=== PATIENT | male | born 1965 | race African-American/Black ===

== ENCOUNTER → 2017-03-10 15:34 | Outpatient (CLI) | payer OTHER ==
[2016-04-18 03:01] VITALS: BMI 30.6
[~2017-03-10 15:34] MED LIST: ASPIRIN81 MG PO; LIPITOR20 MG PO
== END | disposition home or self-care (01) ==
LOC: D.US 02-22 11:00
DX: N18.9 Chronic kidney disease, unspecified (principal); R10.9 Unspecified abdominal pain

== ENCOUNTER 2017-08-05 19:57 | Emergency (ER) | payer BC ==
[2016-04-18 03:01] VITALS: BMI 30.6
[2017-08-05 20:39] LABS: APPEARANCE CLEAR (CLEAR); BASOPHILS 0.3 % (0-2); BILIRUBIN NEGATIVE (NEGATIVE); COLOR STRAW (YELLOW); EOSINOPHILS 1.9 % (0-7); GLUCOSE NEGATIVE (NEGATIVE); HEMATOCRIT 41.8 % (42.0-54.0); IMMATURE GRANULOCYTES 0.3 % (0-5); KETONE NEGATIVE (NEGATIVE); LYMPHOCYTES 49.3 % (15-50); MCH 31.1 pg (26.0-34.0); MCHC 35.9 g/dL (31.0-37.0); MCV 86.5 fL (80.0-100.0); MEAN PLATELET VOLUME 10.1 fL (7.4-10.4); MONOCYTES 7.2 % (2-11); NITRITE NEGATIVE (NEGATIVE); PH 5.5 (5.0-6.0); PLATELET COUNT 202 10x3/uL (130-400); PROTEIN NEGATIVE (NEGATIVE); RBC 4.83 10x6/uL (4.20-6.10); RDW 12.5 % (11.5-14.5); SPECIFIC GRAVITY 1.005 (1.005-1.020); UROBILINOGEN NORMAL (NORMAL); WBC 3.8 10x3/uL (4.8-10.8)
[2017-08-05 21:02] LABS: ALBUMIN 3.9 g/dL (3.4-5.0); ANION GAP 14.2 mmol/L (8-16); BILIRUBIN - TOTAL 0.5 mg/dL (0.2-1.3); CALCIUM 9.1 mg/dL (8.5-10.1); CARBON DIOXIDE 26.4 mmol/L (21.0-32.0); CREATININE - SERUM 1.4 mg/dL (0.6-1.3); POTASSIUM - SERUM 3.6 mmol/L (3.5-5.1); PROTEIN - SERUM 7.5 g/dL (6.4-8.2)
[2017-08-05 21:43] LABS: AMYLASE - SERUM 48 U/L (25-115); LIPASE 72 U/L (73-393)
[2017-09-19] MEDS ORDERED: FLOMAX0.4 MG PO (17:48)
== END 2017-08-05 23:01 | disposition home or self-care (01) ==
LOC: D.ER 19:57
PROVIDERS: Emergency Medicine; Nurse Practitioner Family
DX: R10.9 Unspecified abdominal pain (principal)

== ENCOUNTER 2017-09-21 06:30 | Day surgery (SDC) | payer BC ==
[~2017-09-21] VITALS: Ht 190.5 cm; Wt 114.3 kg
--- NOTE | ~2017-09-21 | OP ---
PATIENT NAME: RADHA OLIVER MEDICAL RECORD: [id number] :63 LOCATION:D.FORMERLY [facility] ADMISSION DATE: SURGEON: CRISTO AGUILAR MD DATE OF OPERATION: 09/21/2017 SURGEON: Cristo Aguilar MD ANESTHESIA: General anesthesia by Dr. David Young. PREOPERATIVE DIAGNOSIS: A 6-mm left renal stone as seen on CT. PROCEDURE: Cystoscopy, left retrograde pyelogram. FINDINGS: No radiodense stones seen. No hydronephrosis or filling defects seen in the kidney or ureter. BLOOD LOSS: None. CLINICAL HISTORY: This is a 52-year-old male, who has been complaining of left flank pain for the past 1-1/2 years. He was initially treated as a gastric ulcer. He does not have any heartburn. He had a CT scan of the abdomen and pelvis on 08/05/2017 and it showed a 6-mm left pole renal stone in the fred. The plan is to insert a left ureteral stent and then have lithotripsy later today. He is not allergic to any medications. He was given Ancef 2 grams IV 1st pressman on web press to the OR. DESCRIPTION OF PROCEDURE: The patient was given induction of general anesthesia. He was then placed into dorsal lithotomy position and prepped and draped. Preoperative Fluoroscopy did not find any visible radiodense stone. He does have a lot of colonic contents overlying the kidneys, however. We performed cystoscopy using a 21-Burkinan cystoscope with 30-degree lens. Penile urethra was normal without any evidence of strictures or tumors. Prostatic urethra is nonobstructive. Going into the bladder, single ureteral orifices are seen on each side. No bladder tumors were seen. Left ureteral orifice was entered with an open-ended ureteral catheter and we injected contrast. There was no hydronephrosis at all. No filling defects were seen in the ureter. In the kidney, there was a possible filling defect in the mid pole, but as we observed this with fluoroscopy, we saw the contrast entered into the area. Either the patient has passed his stone or he still has a stone present, but it is radiolucent. In that case, I will start him on potassium citrate 10 mEq p.o. t.i.d. in case if it is a uric acid stone. Alkalinizing the urine can dissolve the uric acid stone. He will not need lithotripsy today. The bladder was emptied through the scope and the scope was removed entirely. I will see him in followup next week to check his urine pH. After a couple of weeks of treatment with the potassium citrate, we can repeat the CT scan and see if the stone was gone. TRANSINT:[id number] Voice Confirmation ID: [id number] DOCUMENT ID: [id number] OPERATIVE REPORT [id number] RADHA OLIVER, CRISTO Hill MD at 0832 CC: [id number] DICTATION DATE: 09/21/17 1102 PUMPER HELPER: 09/21/17 1519 [facility] 09/21/17 [facility] [address] [place] [address]
[~2017-09-21 06:30] MED LIST changes: +FLOMAX0.4 MG PO
[2017-09-21] MEDS ORDERED: BAYER CHEWABLE81 MG PO (08:05)
[2017-09-21 08:07] LABS: HEMATOCRIT 40.5 % (42.0-54.0); HEMOGLOBIN 14.7 g/dL (13.5-17.5); MCH 31.1 pg (26.0-34.0); MCHC 36.3 g/dL (31.0-37.0); MCV 85.6 fL (80.0-100.0); MEAN PLATELET VOLUME 10.3 fL (7.4-10.4); RBC 4.73 10x6/uL (4.20-6.10); RDW 13.1 % (11.5-14.5); WBC 3.9 10x3/uL (4.8-10.8)
[2017-09-21 08:09] VITALS: BP 108/66; Ht 190.5 cm; Wt 114.3 kg
== END 2017-09-21 12:33 | disposition home or self-care (01) ==
LOC: D.OPS 06:30 → D.PAN 07:30 → D.OPS 07:30
PROVIDERS: Anesthesiology
DX: N20.0 Calculus of kidney (principal); Z01.812 Encounter for preprocedural laboratory examination

== ENCOUNTER → 2018-09-07 07:17 | Outpatient (CLI) | payer BC ==
[2017-09-21 08:09] VITALS: BMI 31.5
[~2018-09-07 07:17] MED LIST changes: +BAYER CHEWABLE81 MG PO
== END | disposition home or self-care (01) ==
LOC: D.US 08-31 08:00
PROVIDERS: ATTEND Family Medicine
DX: R10.10 Upper abdominal pain, unspecified (principal); N20.1 Calculus of ureter

== ENCOUNTER → 2020-11-04 08:47 | Outpatient (CLI) | payer BC ==
[2017-09-21 08:09] VITALS: BMI 31.5
== END | disposition home or self-care (01) ==
LOC: D.HCCECHO 08:47
PROVIDERS: ATTEND Internal Medicine Interventional Cardiology
DX: R07.9 Chest pain, unspecified (principal)